=== PATIENT | male | born 1965 | race Caucasian/White ===

== ENCOUNTER 2017-02-27 20:38 | Inpatient (IN) | payer BC, OTHER ==
[2017-02-27 20:45] VITALS: O2SAT 100
[2017-02-27 21:00] VITALS: O2SAT 100
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
[2017-02-27 21:13] LABS: AUTOMATED NEUTROPHIL # 7.7 TH/MM3 (1.8-7.7); BASOPHIL # 0.1 TH/MM3 (0-0.2); BASOPHIL % 1.2 % (0.0-2.0); EOSINOPHIL % 0.2 % (0.0-4.0); HEMATOCRIT 39.9 % (39.0-51.0); LYMPH % 23.8 % (9.0-44.0); LYMPHOCYTE # 2.8 TH/MM3 (1.0-4.8); MEAN CELL VOLUME 98.5 FL (80.0-100.0); MEAN CORPUSCULAR HEMOGLOBIN 32.7 PG (27.0-34.0); MEAN CORPUSCULAR HGB CONC 33.2 % (32.0-36.0); MONO % 8.7 % (0.0-8.0); NEUT % 66.1 % (16.0-70.0); PLATELET COUNT 72 TH/MM3 (150-450); RED BLOOD COUNT 4.05 MIL/MM3 (4.50-5.90); RED CELL DISTRIBUTION WIDTH 12.9 % (11.6-17.2); WHITE BLOOD COUNT 11.7 TH/MM3 (4.0-11.0)
[2017-02-27] MEDS ORDERED: IOHEXOL 350 MG/ML 10 ML VIAL (for RAD DIAG) IVCONTRAST ONE (21:15)
[2017-02-27 21:16] LABS: HEMO FLAGS AUTO DIFF
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
[2017-02-27] MEDS ORDERED: metroNIDAZOLE 500 MG INJ 100 ML IV ONE (21:37)
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
[2017-02-27 21:42] LABS: PLATELET ESTIMATE SMEAR NORMAL (NORMAL); SCAN/DIFF AUTO DIFF CONFIRMED
[2017-02-27 21:43] LABS: PLATELET MORPHOLOGY CLUMPED (NORMAL)
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
[2017-02-27] MEDS ORDERED: ETOMIDATE 20 MG/10 ML VIAL ONE (21:48)
[2017-02-27] MEDS ORDERED: ROCURONIUM INJ 50 MG/5 ML VIAL ONE (21:48)
[2017-02-27 22:05] LABS: I-STAT POTASSIUM 3.3 MMOL/L (3.5-4.9)
[2017-02-27] MEDS ORDERED: GENTAMICIN SULFATE 80 MG/2 ML VIAL ONE (22:07)
[2017-02-27 22:27] LABS: APTT (PATIENT) 23.1 SEC (24.3-30.1); PROTHROMBIN TIME - PATIENT 11.4 SEC (9.8-11.6)
[2017-02-27] MEDS ORDERED: SODIUM CHLOR 0.9% 1000 ML INJ 1,000 ML IV SCH (23:10)
[2017-02-27] MEDS ORDERED: CHLORHEXIDINE GLUCONATE 2 % 1 PACK (2 CLOTHS) TOP PRN (23:15)
[2017-02-27] MEDS ORDERED: MISCELLANEOUS NURSING INFORMATION XX SCH (23:15)
[2017-02-27] MEDS ORDERED: PROPOFOL 1000 MG/100 ML INJ 100 ML IV PRN (23:30)
[2017-02-27] MEDS ORDERED: fentaNYL DRIP 250 ML IV PRN (23:30)
[2017-02-27 23:35] VITALS: O2SAT 100
[2017-02-27] MEDS ORDERED: fentaNYL 2,500 MCG/NS 250 ML IV PRN (23:45)
[2017-02-28] VITALS (15 sets, daily range): BP systolic 96–169; BP diastolic 51–88; PULSE 105–128; RESP 13–20; TEMP 98.7–101.5; O2SAT 97–100
[2017-02-28] MEDS: PROPOFOL 1000 MG/100 ML IV PRN ×3 (00:05→09:26)
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
[2017-02-28] MEDS: ceFAZolin 2 GM PREMIX 50 ML IV SCH ×3 (00:49→15:16)
[2017-02-28] MEDS: FAMOTIDINE 20 MG/2 ML VIAL IV PUSH SCH ×2 (00:51→09:22)
[2017-02-28 01:09] LABS: BLOOD GAS BASE EXCESS -7.3 mmol/L (-2-2); BLOOD GAS CARBOXYHEMOGLOBIN 0.7 % (0-4); BLOOD GAS HCO3 18 mmol/L (22-26); BLOOD GAS METHEMOGLOBIN 1.1 % (0-2); BLOOD GAS O2 HGB SATURATION 97 % (90-100); BLOOD GAS OXYGEN CONTENT 20.9 Vol % (12.0-20.0); BLOOD GAS PCO2 41 mmHg (38-42); BLOOD GAS PO2 170 mmHg (61-120); BLOOD GAS TOTAL HGB 15.1 G/DL (12.0-16.0); TEMP CORR TO 98.6
[2017-02-28 01:10] LABS: CRITICAL VALUE YES; OXYGEN DEVICE VENTILATOR
[2017-02-28 01:11] LABS: DRAW SITE LT RADIAL; FIO2 50 %; NUMBER OF ARTERIAL PUNCTURES 1; STAT NO; ULNAR PULSE PRESENT; VENT SETTINGS AC/RR14/VT600/PEEP5
[2017-02-28] MEDS ORDERED: MAGNESIUM SULFATE INJ 4 GM in SODIUM CHLORIDE 0.9% INJ 92 ML IV PRN (02:00)
[2017-02-28] MEDS ORDERED: MAGNESIUM SULFATE INJ 2 GM in SODIUM CHLORIDE 0.9% INJ 96 ML IV PRN (02:00)
[2017-02-28] MEDS ORDERED: LACTATED RINGER'S 1000 ML INJ 1,000 ML IV ONE ×2 (02:00→08:00)
[2017-02-28] MEDS ORDERED: POTASSIUM CHLOR 20 MEQ PREMIX 100 ML IV PRN (02:00)
[2017-02-28] MEDS ORDERED: POTASSIUM PHOSPHATE INJ 30 MMOL in SODIUM CHLOR 0.9% 250 ML INJ 250 ML IV PRN (02:00)
[2017-02-28] MEDS ORDERED: POTASSIUM CHLORIDE 25 MEQ EFFERVESCENT TAB PO PRN (02:00)
[2017-02-28] MEDS ORDERED: POTASSIUM PHOSPHATE MONOBASIC 500 MG TAB PO/TUBE PRN (02:00)
[2017-02-28] MEDS ORDERED: POTASSIUM CHLOR 40 MEQ PREMIX 100 ML IV PRN ×2 (02:00)
[2017-02-28] MEDS ORDERED: MAGNESIUM OXIDE 400 MG TAB PO PRN (02:00)
[2017-02-28] MEDS ORDERED: POTASSIUM PHOSPHATE MONOBASIC 500 MG TAB PO PRN (02:00)
[2017-02-28] MEDS ORDERED: SODIUM PHOSPHATE INJ 30 MMOL in SODIUM CHLOR 0.9% 250 ML INJ 240 ML IV PRN (02:00)
[2017-02-28 03:19] LABS: BASOPHIL % 0.4 % (0.0-2.0); EOSINOPHIL % 0.1 % (0.0-4.0); HEMATOCRIT 40.6 % (39.0-51.0); LYMPH % 13.7 % (9.0-44.0); LYMPHOCYTE # 1.7 TH/MM3 (1.0-4.8); MEAN CELL VOLUME 97.8 FL (80.0-100.0); MEAN CORPUSCULAR HEMOGLOBIN 33.2 PG (27.0-34.0); MEAN CORPUSCULAR HGB CONC 33.9 % (32.0-36.0); MONO % 6.4 % (0.0-8.0); NEUT % 79.4 % (16.0-70.0); PLATELET COUNT 149 TH/MM3 (150-450); RED BLOOD COUNT 4.15 MIL/MM3 (4.50-5.90); RED CELL DISTRIBUTION WIDTH 13.2 % (11.6-17.2); WHITE BLOOD COUNT 12.6 TH/MM3 (4.0-11.0)
[2017-02-28 03:21] LABS: HEMO FLAGS AUTO DIFF; PROTHROMBIN TIME - PATIENT 11.4 SEC (9.8-11.6)
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
[2017-02-28] MEDS: LACTATED RINGER'S 1000 ML INJ 1,000 ML IV SCH ×2 (03:45→12:08)
[2017-02-28] MEDS: CHLORHEXIDINE GLUCONATE 2 % 1 PACK (2 CLOTHS) TOP SCH (04:00)
[2017-02-28 04:12] LABS: BICARBONATE 20.3 MEQ/L (21.0-32.0); MAGNESIUM 1.9 MG/DL (1.5-2.5); POTASSIUM 3.3 MEQ/L (3.5-5.1)
[2017-02-28 04:19] LABS: BANDS 21 % (0-6); BASOPHILS 1 % (0-2); METAMYELOCYTES 4 % (0-1); NEUTROPHIL # MANUAL DIFF 10.6 TH/MM3 (1.8-7.7); PLATELET ESTIMATE SMEAR NORMAL (NORMAL); POLYS (SEG NEUTROPHILS) 59 % (16-70); SCAN/DIFF FINAL DIFF MANUAL; WBC DIFF SAMPLE 100
[2017-02-28 04:20] LABS: PLATELET MORPHOLOGY NORMAL (NORMAL)
[2017-02-28 04:27] LABS: BLOOD GAS BASE EXCESS -6.2 mmol/L (-2-2); BLOOD GAS CARBOXYHEMOGLOBIN 0.8 % (0-4); BLOOD GAS HCO3 19 mmol/L (22-26); BLOOD GAS METHEMOGLOBIN 1.2 % (0-2); BLOOD GAS O2 HGB SATURATION 97 % (90-100); BLOOD GAS PCO2 41 mmHg (38-42); BLOOD GAS PO2 143 mmHg (61-120); BLOOD GAS TOTAL HGB 13.8 G/DL (12.0-16.0); CRITICAL VALUE NO; FIO2 50 %; OXYGEN DEVICE VENTILATOR; TEMP CORR TO 98.6; VENT SETTINGS AC/RR14/VT600/PEEP5
[2017-02-28 04:28] LABS: CALCIUM-PROTEIN CORRECTED 6.8 MG/DL (8.5-10.1)
[2017-02-28 04:28] LABS: DRAW SITE RT RADIAL; NUMBER OF ARTERIAL PUNCTURES 1; STAT NO; ULNAR PULSE PRESENT
[2017-02-28] MEDS: POTASSIUM CHLOR 20 MEQ PREMIX 100 ML IV PRN ×2 (04:36→06:46)
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
[2017-02-28] MEDS ORDERED: CHLORHEXIDINE 0.12% (ORAL KIT) 15 ML CUP MT SCH (08:00)
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
[2017-02-28] MEDS: ACETAMINOPHEN 1000 MG/100 ML 100 ML IV SCH ×2 (12:03→19:58)
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
[2017-02-28] MEDS ORDERED: RESP: ALBUTEROL 2.5 MG/3 ML NEB (PRN) NEB (14:30)
[2017-02-28] MEDS ORDERED: CALCIUM GLUCONATE INJ 1 GM in SODIUM CHLORIDE 0.9% INJ 100 ML IV ONE ×2 (14:30→17:00)
[2017-02-28] MEDS ORDERED: HYDROmorphone HCL PF 1 MG/ML VIAL IV PUSH PRN (14:30)
[2017-02-28] MEDS ORDERED: METOPROLOL TARTRATE 5 MG/5 ML VIAL IV PUSH SCH (15:00)
[2017-02-28] MEDS: HYDROmorphone HCL PF 1 MG/ML VIAL IV PUSH PRN ×2 (15:14→21:04)
[2017-02-28] MEDS ORDERED: MULTIVITAMIN INJ 10 ML, THIAMINE INJ 100 MG, FOLIC ACID INJ 1 MG in SODIUM CHLORID 0.9%... IV ONE (16:00)
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
[2017-02-28] MEDS: METOPROLOL SUCCINATE 25 MG EXTENDED RELEASE TAB PO SCH (16:30)
[2017-02-28] MEDS: ENOXAPARIN SODIUM 40 MG/0.4 ML SYRINGE SQ SCH (17:58)
[2017-02-28] MEDS: metroNIDAZOLE 500 MG INJ 100 ML IV SCH (17:58)
[2017-02-28] MEDS: oxyCODONE/ACETAMINOPHEN 5 MG/325 MG TAB PO PRN (22:37)
[2017-03-01] VITALS (7 sets, daily range): BP systolic 104–142; BP diastolic 65–80; PULSE 109–121; RESP 18–20; TEMP 98.7–100.8; O2SAT 90–98
[2017-03-01] MEDS: ACETAMINOPHEN 1000 MG/100 ML 100 ML IV SCH ×3 (00:41→11:56)
[2017-03-01] MEDS: ceFAZolin 2 GM PREMIX 50 ML IV SCH ×3 (00:41→15:52)
[2017-03-01] MEDS: HYDROmorphone HCL PF 1 MG/ML VIAL IV PUSH PRN ×3 (00:42→21:08)
[2017-03-01] MEDS: LACTATED RINGER'S 1000 ML INJ 1,000 ML IV SCH ×3 (01:45→21:09)
[2017-03-01] MEDS: metroNIDAZOLE 500 MG INJ 100 ML IV SCH ×3 (02:15→18:56)
[2017-03-01] MEDS: CHLORHEXIDINE GLUCONATE 2 % 1 PACK (2 CLOTHS) TOP SCH (04:00)
[2017-03-01] MEDS: oxyCODONE/ACETAMINOPHEN 5 MG/325 MG TAB PO PRN (05:50)
[2017-03-01 07:18] LABS: AUTOMATED NEUTROPHIL # 15.4 TH/MM3 (1.8-7.7); BASOPHIL # 0.1 TH/MM3 (0-0.2); BASOPHIL % 0.4 % (0.0-2.0); BICARBONATE 23.1 MEQ/L (21.0-32.0); EOSINOPHIL % 0.2 % (0.0-4.0); HEMATOCRIT 36.2 % (39.0-51.0); HEMO FLAGS DIFF FINAL; LYMPHOCYTE # 1.2 TH/MM3 (1.0-4.8); MEAN CELL VOLUME 98.6 FL (80.0-100.0); MEAN CORPUSCULAR HEMOGLOBIN 32.9 PG (27.0-34.0); MEAN CORPUSCULAR HGB CONC 33.3 % (32.0-36.0); MONO % 5.7 % (0.0-8.0); NEUT % 86.7 % (16.0-70.0); PLATELET COUNT 125 TH/MM3 (150-450); POTASSIUM 3.5 MEQ/L (3.5-5.1); RED BLOOD COUNT 3.67 MIL/MM3 (4.50-5.90); RED CELL DISTRIBUTION WIDTH 13.5 % (11.6-17.2); WHITE BLOOD COUNT 17.8 TH/MM3 (4.0-11.0)
[2017-03-01 07:30] LABS: CALCIUM-PROTEIN CORRECTED 8.1 MG/DL (8.5-10.1)
[2017-03-01] MEDS: FAMOTIDINE 20 MG TAB PO SCH ×2 (08:55→21:08)
[2017-03-01] MEDS: METOPROLOL SUCCINATE 25 MG EXTENDED RELEASE TAB PO SCH (08:55)
[2017-03-01] MEDS ORDERED: ACETAMINOPHEN 1000 MG/100 ML 100 ML IV ONE (09:28)
[2017-03-01] MEDS: oxyCODONE/ACETAMINOPHEN 7.5 MG/325 MG TAB PO PRN ×2 (11:54→15:52)
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
[2017-03-01] MEDS: LACTULOSE SYRUP 20 GM/30 ML CUP PO SCH (14:59)
[2017-03-01] MEDS: ENOXAPARIN SODIUM 40 MG/0.4 ML SYRINGE SQ SCH (18:56)
[2017-03-01] MEDS: MAGNESIUM HYDROXIDE SUSP 30 ML CUP PO SCH (21:08)
[2017-03-01] MEDS: DOCUSATE SODIUM 50 MG/SENNA 8.6 MG TAB PO SCH (21:08)
[2017-03-02 03:00] VITALS: BP 131/65; PULSE 108; RESP 18; TEMP 99.8; O2SAT 92
[2017-03-02] MEDS: metroNIDAZOLE 500 MG INJ 100 ML IV SCH ×3 (03:11→17:28)
[2017-03-02 06:05] LABS: AUTOMATED NEUTROPHIL # 15.3 TH/MM3 (1.8-7.7); BASOPHIL # 0.1 TH/MM3 (0-0.2); BASOPHIL % 0.3 % (0.0-2.0); EOSINOPHIL # 0.2 TH/MM3 (0-0.4); EOSINOPHIL % 1.2 % (0.0-4.0); HEMATOCRIT 34.2 % (39.0-51.0); HEMO FLAGS DIFF FINAL; LYMPH % 7.2 % (9.0-44.0); LYMPHOCYTE # 1.3 TH/MM3 (1.0-4.8); MEAN CELL VOLUME 98.5 FL (80.0-100.0); MEAN CORPUSCULAR HEMOGLOBIN 33.3 PG (27.0-34.0); MEAN CORPUSCULAR HGB CONC 33.8 % (32.0-36.0); MONO % 3.6 % (0.0-8.0); NEUT % 87.7 % (16.0-70.0); PLATELET COUNT 126 TH/MM3 (150-450); RED BLOOD COUNT 3.47 MIL/MM3 (4.50-5.90); RED CELL DISTRIBUTION WIDTH 13.3 % (11.6-17.2); WHITE BLOOD COUNT 17.4 TH/MM3 (4.0-11.0)
[2017-03-02 06:24] LABS: BICARBONATE 22.7 MEQ/L (21.0-32.0); POTASSIUM 3.3 MEQ/L (3.5-5.1)
[2017-03-02] MEDS ORDERED: POTASSIUM CHLORIDE 20 MEQ CONTROLLED RELEASE TAB PO ONE (07:15)
[2017-03-02 08:00] VITALS: BP 133/75; PULSE 106; RESP 18; TEMP 98.3; O2SAT 93
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
[2017-03-02] MEDS: METOPROLOL SUCCINATE 25 MG EXTENDED RELEASE TAB PO SCH (08:50)
[2017-03-02] MEDS: oxyCODONE/ACETAMINOPHEN 7.5 MG/325 MG TAB PO PRN ×4 (08:51→21:44)
[2017-03-02] MEDS: FAMOTIDINE 20 MG TAB PO SCH ×2 (08:51→21:43)
[2017-03-02] MEDS: DOCUSATE SODIUM 50 MG/SENNA 8.6 MG TAB PO SCH ×2 (08:51→21:43)
[2017-03-02] MEDS: LACTULOSE SYRUP 20 GM/30 ML CUP PO SCH (09:00)
--- NOTE | 2017-03-02 11:19 | HHI.PYPN ---
Subjective Remarks Patient was seen today for psychiatric reevaluation, patient is found in his room, calm, cooperative. Patient stated that he is feeling much better today. He says that he has been dedicated time to think about what he did. He has concluded that alcohol intoxication had a lot to do with his past suicide attempt. He says that he has been increasing his alcohol intake in the last weeks due to financial and marital problems. Patient says that he has been living at conflict his marital life with his and they have not being able to, with a "mature solution". Patient says that now that this happened to him he becomes aware of how important his for many people in his surrounding. Patient says that he has a plan to quit alcohol and to sell all his collection weapons. At this moment the patient reports good mood, denies suicidal and homicidal ideation, denies visual and auditory hallucinations. She is oriented 3, no attention deficit, no fruit patient of consciousness, no withdrawal symptoms are present. No agitation, no aggressive behavior reported. Chief Complaint: suicide attempts Review of Systems Except as stated in HPI: all other systems reviewed are Neg Mental Status Examination Appearance: Other (in hospital attire.) Consciousness: Alert (no evidence of delirium) Orientation: Person, Place, Date/Time (approximate) Motor Activity: Other (no motor abnormalities noted) Speech: Unremarkable Language: Adequate Fund of Knowledge: Adequate (at least above average) Attention and Concentration: Adequate Memory: Unremarkable Mood: Appropriate Affect: Appropriate Thought Process & Associations: Intact Thought Content: Appropriate Hallucination Type: None Delusion Type: None Suicidal Ideation: No (unreliable to contract for safety) Suicidal Plan: No Suicidal Intention: No Homicidal Ideation: No Homicidal Plan: No Homicidal Intention: No Insight: Poor Judgment: Poor Results Labs Test 03/02/17 04:50 White Blood Count 17.4 TH/MM3 Red Blood Count 3.47 MIL/MM3 Hemoglobin 11.5 GM/DL Hematocrit 34.2 % Mean Corpuscular Volume 98.5 FL Mean Corpuscular Hemoglobin 33.3 PG Mean Corpuscular Hemoglobin Concent 33.8 % Red Cell Distribution Width 13.3 % Platelet Count 126 TH/MM3 Mean Platelet Volume 10.2 FL Neutrophils (%) (Auto) 87.7 % Lymphocytes (%) (Auto) 7.2 % Monocytes (%) (Auto) 3.6 % Eosinophils (%) (Auto) 1.2 % Basophils (%) (Auto) 0.3 % Neutrophils # (Auto) 15.3 TH/MM3 Lymphocytes # (Auto) 1.3 TH/MM3 Monocytes # (Auto) 0.6 TH/MM3 Eosinophils # (Auto) 0.2 TH/MM3 Basophils # (Auto) 0.1 TH/MM3 CBC Comment DIFF FINAL Differential Comment Blood Urea Nitrogen 8 MG/DL Creatinine 0.73 MG/DL Random Glucose 102 MG/DL Calcium Level 8.1 MG/DL Sodium Level 136 MEQ/L Potassium Level 3.3 MEQ/L Chloride Level 103 MEQ/L Carbon Dioxide Level 22.7 MEQ/L Anion Gap 10 MEQ/L Estimat Glomerular Filtration Rate 93 ML/MIN Vitals/IOs Vital Signs Date Time Temp Pulse Resp B/P (MAP) Pulse Ox O2 Delivery O2 Flow Rate FiO2 03/02/17 08:00 98.3 106 18 133/75 (94) 93 03/01/17 19:21 Room Air 02/28/17 11:25 2 02/28/17 08:02 50 Intake and Output 03/02/17 03/02/17 03/03/17 08:00 16:00 00:00 Intake Total 1079 ml Balance 1079 ml Assessment & Plan Problem List: (1) Adjustment disorder with mixed disturbance of emotions and conduct ICD Codes: F43.25 - Adjustment disorder with mixed disturbance of emotions and conduct Assessment & Plan: Patient seems to be today more insightful about the circumstances, emotions, behavior that led to highly lethal suicide attempt. He denies current suicidal ideation, denies plan, and for safety in the hospital. Patient should continue in one-to-one sitter for suicidal precautions. No psychotropics indicated at this moment. Patient also should be in CIWA protocol. No psychotropics indicated at this moment. Extensive support, motivation and psychoeducation provided. Transfer patient to psychiatry once medically appropriate. (2) Alcohol use ICD Codes: Z78.9 - Other specified health status Assessment & Plan Estimated LOS: days Justification for Cont. Inpt. Patient needs psychiatric hospitalization for safety and stabilization. Request HC Surrog/Guard Advoc?: No Christopher Mo MD Mar 02, 2017 11:19
[2017-03-02 12:00] VITALS: BP 140/79; PULSE 89; RESP 18; TEMP 97.8; O2SAT 95
[2017-03-02] MEDS: ceFAZolin 2 GM PREMIX 50 ML IV SCH ×2 (13:18→17:28)
[2017-03-02 16:20] VITALS: BP 128/80; PULSE 104; RESP 17; TEMP 99; O2SAT 94
[2017-03-02] MEDS: ENOXAPARIN SODIUM 40 MG/0.4 ML SYRINGE SQ SCH (17:28)
[2017-03-02 19:45] VITALS: BP 123/70; PULSE 113; RESP 20; TEMP 100.6; O2SAT 94
[2017-03-02] MEDS: MAGNESIUM HYDROXIDE SUSP 30 ML CUP PO SCH (21:43)
[2017-03-02 23:20] VITALS: BP 132/74; PULSE 98; RESP 20; TEMP 100.2; O2SAT 93
[2017-03-03] MEDS: ceFAZolin 2 GM PREMIX 50 ML IV SCH ×2 (02:36→10:58)
[2017-03-03] MEDS: metroNIDAZOLE 500 MG INJ 100 ML IV SCH ×2 (02:36→10:58)
[2017-03-03 04:21] LABS: BASOPHIL # 0.1 TH/MM3 (0-0.2); BASOPHIL % 0.4 % (0.0-2.0); EOSINOPHIL # 0.6 TH/MM3 (0-0.4); EOSINOPHIL % 4.9 % (0.0-4.0); HEMATOCRIT 32.5 % (39.0-51.0); HEMO FLAGS DIFF FINAL; LYMPHOCYTE # 1.9 TH/MM3 (1.0-4.8); MEAN CELL VOLUME 96.5 FL (80.0-100.0); MEAN CORPUSCULAR HEMOGLOBIN 32.1 PG (27.0-34.0); MEAN CORPUSCULAR HGB CONC 33.3 % (32.0-36.0); MONO % 6.8 % (0.0-8.0); NEUT % 72.9 % (16.0-70.0); PLATELET COUNT 156 TH/MM3 (150-450); RED BLOOD COUNT 3.37 MIL/MM3 (4.50-5.90); RED CELL DISTRIBUTION WIDTH 13.3 % (11.6-17.2); WHITE BLOOD COUNT 12.4 TH/MM3 (4.0-11.0)
[2017-03-03 04:41] LABS: BICARBONATE 28.2 MEQ/L (21.0-32.0); POTASSIUM 3.1 MEQ/L (3.5-5.1)
[2017-03-03 08:00] VITALS: BP 139/68; PULSE 86; RESP 18; TEMP 97.8; O2SAT 95
[2017-03-03] MEDS: oxyCODONE/ACETAMINOPHEN 7.5 MG/325 MG TAB PO PRN ×2 (08:39→12:56)
[2017-03-03] MEDS: FAMOTIDINE 20 MG TAB PO SCH (08:39)
[2017-03-03] MEDS: DOCUSATE SODIUM 50 MG/SENNA 8.6 MG TAB PO SCH (08:39)
[2017-03-03] MEDS: METOPROLOL SUCCINATE 25 MG EXTENDED RELEASE TAB PO SCH (08:39)
[2017-03-03] MEDS: LACTULOSE SYRUP 20 GM/30 ML CUP PO SCH (08:39)
[2017-03-03 11:16] LABS: BATH SALTS (MDPV) UR NEG (NEG); ECSTASY (MDMA) UR NEG (NEG); GABAPENTIN UR NEG (NEG); HEROIN (6-ACETYLMORPHINE) UR NEG (NEG); HYDROMORPHONE U NEG (NEG); K2 SPICE UR NEG (NEG); OBMETHADONE UR NEG (NEG); PHENCYCLIDINE URINE NEG (NEG)
[2017-03-03] MEDS ORDERED: METO25TA6 PO (11:49)
[2017-03-03] MEDS ORDERED: MAGN400S PO (11:49)
[2017-03-03] MEDS ORDERED: OXYC1TAB35 PO (11:49)
[2017-03-03] MEDS ORDERED: Lactulose Liq PO (11:49)
[2017-03-03] MEDS ORDERED: ENOX40P SQ (11:49)
[2017-03-03] MEDS ORDERED: OXYC1TAB63 PO (11:49)
[2017-03-03] MEDS ORDERED: SENN1TAB PO (11:49)
[2017-03-03 12:00] VITALS: BP 120/78; PULSE 75; RESP 18; TEMP 98.9; O2SAT 94
[2017-03-03] MEDS ORDERED: ROCURONIUM INJ 50 MG/5 ML SYRINGE IV PUSH ONE (12:00)
[2017-03-03] MEDS ORDERED: SUCCINYLCHOLINE CHLORIDE 100 MG/5 ML SYRINGE IV PUSH ONE (12:00)
[2017-03-03] MEDS ORDERED: NORMOSOL R INJ 2,000 ML IV ONE (12:00)
[2017-03-03] MEDS ORDERED: STERILE WATER FOR INJECTION 20 ML VIAL IV ONE (12:00)
[2017-03-03] MEDS ORDERED: PROPOFOL 200 MG/20 ML AMP IV ONE (12:00)
[2017-03-03] MEDS ORDERED: CEFA2SOL IV (12:12)
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
== END 2017-03-03 13:53 | DRG 957 ==
LOC: HOR 20:38 → EDBD 21:00 → NEDA 21:00 → N03A 23:32 → N06B 02-28 23:00
PROVIDERS: ADMIT Surgery Trauma Surgery; ATTEND Surgery Trauma Surgery
PROC: 0DQH0ZZ Repair Cecum, Open Approach (ICD-10-PCS; principal; 2017-02-28)
PROC: 0BH17EZ Insertion of Endotracheal Airway into Trachea, Via Natural or Artificial Opening (ICD-10-PCS; 2017-02-28)
PROC: 5A1935Z Respiratory Ventilation, Less than 24 Consecutive Hours (ICD-10-PCS; 2017-02-28)
DX: S36.538A Laceration of other part of colon, initial encounter (principal); J96.00 Acute respiratory failure, unspecified whether with hypoxia or hypercapnia; S32.301A Unspecified fracture of right ilium, initial encounter for closed fracture; S31.610A Laceration without foreign body of abdominal wall, right upper quadrant with penetration into peritoneal cavity, initial encounter; E87.2 Acidosis; D69.6 Thrombocytopenia, unspecified; J98.11 Atelectasis; E83.51 Hypocalcemia; E86.9 Volume depletion, unspecified; Y92.9 Unspecified place or not applicable; F10.129 Alcohol abuse with intoxication, unspecified; E78.5 Hyperlipidemia, unspecified; E87.6 Hypokalemia; K76.89 Other specified diseases of liver; R50.82 Postprocedural fever; Y90.7 Blood alcohol level of 200-239 mg/100 ml; K76.0 Fatty (change of) liver, not elsewhere classified; K40.90 Unilateral inguinal hernia, without obstruction or gangrene, not specified as recurrent; Z79.899 Other long term (current) drug therapy; Z91.5 Personal history of self-harm; D72.829 Elevated white blood cell count, unspecified; F43.10 Post-traumatic stress disorder, unspecified; F43.25 Adjustment disorder with mixed disturbance of emotions and conduct; Z63.0 Problems in relationship with spouse or partner
CPT/HCPCS: 31500; 36600; 71010; 71260; 74177; 80048; 80307; 82435; 82565; 82805; 82947; 83735; 84100; 84132; 84155; 84295; 84520; 85007; 85025; 85027; 85049; 85384; 85610; 85730; 86850; 86900; 86901; 86920; 87641; 90471; 94002; 94003; 94150; 94640; 94668; 96374; 96375; 99291; G0390; G0481; J0131; J0330; J0610; J0690; J1170; J1580; J1650; J3010; J3411; J3480; J7030; J7040; J7120; Q9967

== ENCOUNTER 2017-03-03 14:05 | Inpatient (IN) | payer BC, OTHER ==
[~2017-03-03 14:05] MED LIST: CEFA2SOL IV; ENOX40P SQ; Lactulose Liq PO; MAGN400S PO; METO25TA6 PO; OXYC1TAB35 PO; OXYC1TAB63 PO; SENN1TAB PO
[2017-03-03] MEDS ORDERED: MAGNESIUM HYDROXIDE SUSP 30 ML CUP PO PRN (16:30)
[2017-03-03] MEDS ORDERED: ACETAMINOPHEN 325 MG TAB PO PRN (16:30)
[2017-03-03] MEDS ORDERED: ALUMINUM/MAGNESIUM/SIMETH 30 ML CUP PO PRN (16:30)
[2017-03-03] MEDS: METOPROLOL SUCCINATE 25 MG EXTENDED RELEASE TAB PO SCH (17:44)
[2017-03-03] MEDS: NICOTINE 21 MG/24 HR PATCH T-DERMAL SCH (17:45)
[2017-03-03 18:25] VITALS: BP 144/71; PULSE 99; RESP 17; TEMP 97.9; O2SAT 97
[2017-03-03] MEDS: ceFAZolin 2 GM/50 ML BAG IV SCH (20:33)
[2017-03-03] MEDS: MAGNESIUM HYDROXIDE SUSP 30 ML CUP PO SCH (21:00)
[2017-03-03] MEDS: DOCUSATE SODIUM 50 MG/SENNA 8.6 MG TAB PO SCH (21:00)
[2017-03-04] MEDS: oxyCODONE/ACETAMINOPHEN 7.5 MG/325 MG TAB PO PRN ×3 (01:18→18:54)
[2017-03-04] MEDS: ceFAZolin 2 GM/50 ML BAG IV SCH ×3 (02:00→18:00)
[2017-03-04 05:42] VITALS: BP 122/65; PULSE 79; RESP 16; TEMP 98.4; O2SAT 96
[2017-03-04] MEDS: METOPROLOL SUCCINATE 25 MG EXTENDED RELEASE TAB PO SCH (08:38)
[2017-03-04] MEDS: DOCUSATE SODIUM 50 MG/SENNA 8.6 MG TAB PO SCH ×3 (08:38→21:14)
[2017-03-04] MEDS: oxyCODONE/ACETAMINOPHEN 5 MG/325 MG TAB PO PRN (08:42)
[2017-03-04] MEDS: NICOTINE 21 MG/24 HR PATCH T-DERMAL SCH (08:43)
[2017-03-04 09:17] LABS: ANION GAP 10 MEQ/L (5-15); BICARBONATE 22.6 MEQ/L (21.0-32.0); BLOOD UREA NITROGEN 10 MG/DL (7-18); CHLORIDE 105 MEQ/L (98-107); GLOMERULAR FILTRATION RATE 113 ML/MIN (>89); HDL CHOLESTEROL 24.7 MG/DL (40.0-60.0); LDL CHOLESTEROL 109 MG/DL (0-99); POTASSIUM 3.2 MEQ/L (3.5-5.1); SODIUM (NA) 138 MEQ/L (136-145)
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
[2017-03-04 16:28] LABS: HEMOGLOBIN A1b 1.8 %; HEMOGLOBIN Ao 84.5 %; HEMOGLOBIN LA1C 2.3 %; HEMOGLOBIN P3 3.9 %
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
[2017-03-04 18:00] VITALS: BP 123/78; PULSE 91; RESP 17; TEMP 98; O2SAT 97
[2017-03-04] MEDS ORDERED: MIRTAZAPINE 15 MG TAB PO SCH (21:00)
[2017-03-04] MEDS: MAGNESIUM HYDROXIDE SUSP 30 ML CUP PO SCH (21:00)
[2017-03-05] MEDS: ceFAZolin 2 GM/50 ML BAG IV SCH (02:00)
[2017-03-05] MEDS: oxyCODONE/ACETAMINOPHEN 7.5 MG/325 MG TAB PO PRN ×2 (04:06→23:23)
[2017-03-05 04:38] VITALS: BP 122/77; PULSE 86; RESP 16; TEMP 99.1; O2SAT 96
[2017-03-05] MEDS: NICOTINE 21 MG/24 HR PATCH T-DERMAL SCH (09:26)
[2017-03-05] MEDS: DOCUSATE SODIUM 50 MG/SENNA 8.6 MG TAB PO SCH ×2 (09:30→20:50)
[2017-03-05] MEDS: METOPROLOL SUCCINATE 25 MG EXTENDED RELEASE TAB PO SCH (09:30)
[2017-03-05] MEDS: oxyCODONE/ACETAMINOPHEN 5 MG/325 MG TAB PO PRN ×2 (09:30→19:42)
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
--- NOTE | 2017-03-05 16:00 | HHI.PYPN ---
Subjective Remarks Patient seen today for psychiatric reevaluation along with nurse in charge, Surendra. Patient is talkative, with high level of intellectualization and self entitlement. Patient says that he has been talking with a lot of important people in his life, he says that those are the right people that he has to speak with in order to restart his life. Patient says that he feels very positive and ready to be discharged and go to his job and put in his things in order. He reports good mood, he denies suicidal and homicidal ideation, he denies visual and auditory hallucinations. Patient is oriented 3, no fluctuation of consciousness, no delirium present. He reports that he could not sleep last night with Remeron. Mental Status Examination Appearance: Appropriate Consciousness: Alert Orientation: x4 Motor Activity: Normal gait Speech: Unremarkable Language: Adequate Fund of Knowledge: Adequate Attention and Concentration: Adequate Memory: Unremarkable Mood: Appropriate Affect: Appropriate Thought Process & Associations: Intact Thought Content: Appropriate Hallucination Type: None Delusion Type: None Suicidal Ideation: No Suicidal Plan: No Suicidal Intention: No Homicidal Ideation: No Homicidal Plan: No Homicidal Intention: No Insight: Adequate Judgment: Adequate Results Vitals/IOs Vital Signs Date Time Temp Pulse Resp B/P (MAP) Pulse Ox O2 Delivery O2 Flow Rate FiO2 03/05/17 04:38 99.1 86 16 122/77 (92) 96 Intake and Output 03/05/17 03/05/17 03/06/17 08:00 16:00 00:00 Intake Total 120 ml 480 ml Balance 120 ml 480 ml Assessment & Plan Problem List: (1) Adjustment disorder with mixed disturbance of emotions and conduct ICD Codes: F43.25 - Adjustment disorder with mixed disturbance of emotions and conduct Assessment & Plan: We'll discontinue Remeron, start Seroquel 50 mg to help with sleep. Assessment & Plan Estimated LOS: days Justification for Cont. Inpt. Patient needs to continue psychiatric hospitalization for stabilization and safety. Christopher Mo MD Mar 05, 2017 16:00
[2017-03-05 18:06] VITALS: BP 164/69; PULSE 83; RESP 16; TEMP 98.5; O2SAT 96
[2017-03-05] MEDS: QUEtiapine FUMARATE 25 MG TAB PO SCH (20:50)
[2017-03-05] MEDS: REMOVE OLD NICODERM (NICOTINE) PATCH T-DERMAL SCH (21:00)
[2017-03-06 06:16] VITALS: BP 118/62; PULSE 83; RESP 16; TEMP 97.9; O2SAT 95
[2017-03-06] MEDS: METOPROLOL SUCCINATE 25 MG EXTENDED RELEASE TAB PO SCH (09:40)
[2017-03-06] MEDS: DOCUSATE SODIUM 50 MG/SENNA 8.6 MG TAB PO SCH ×2 (09:40→21:56)
[2017-03-06] MEDS: oxyCODONE/ACETAMINOPHEN 5 MG/325 MG TAB PO PRN ×2 (09:40→21:56)
[2017-03-06] MEDS: NICOTINE 21 MG/24 HR PATCH T-DERMAL SCH (09:41)
--- NOTE | 2017-03-06 13:19 | HHI.PYPN ---
Subjective Remarks She was seen today for psychiatric evaluation patient is found sleeping, he arousable, reports good mood, states that he feels everything better. Patient motivated to be discharged continue with his life, continue psychotropic medications and counseling in outpatient basis. Denies depression, denies anxiety, denies suicidal and homicidal ideation, denies visual and auditory hallucinations. Oriented per 3, logical, coherent and relevant. Reported better sleep last night with Seroquel. Review of Systems Except as stated in HPI: all other systems reviewed are Neg Mental Status Examination Appearance: Appropriate Consciousness: Alert Orientation: x4 Motor Activity: Normal gait Speech: Unremarkable Language: Adequate Fund of Knowledge: Adequate Attention and Concentration: Adequate Memory: Unremarkable Mood: Appropriate Affect: Appropriate Thought Process & Associations: Intact Thought Content: Appropriate Hallucination Type: None Delusion Type: None Suicidal Ideation: No Suicidal Plan: No Suicidal Intention: No Homicidal Ideation: No Homicidal Plan: No Homicidal Intention: No Insight: Adequate Judgment: Adequate Results Vitals/IOs Vital Signs Date Time Temp Pulse Resp B/P (MAP) Pulse Ox O2 Delivery O2 Flow Rate FiO2 03/06/17 06:16 97.9 83 16 118/62 (80) 95 Intake and Output 03/06/17 03/06/17 03/07/17 08:00 16:00 00:00 Intake Total 0 ml Balance 0 ml Assessment & Plan Problem List: (1) Adjustment disorder with mixed disturbance of emotions and conduct ICD Codes: F43.25 - Adjustment disorder with mixed disturbance of emotions and conduct Assessment & Plan Estimated LOS: days Justification for Cont. Inpt. Patient has an elevator risk of danger to self out of this structure environment. Christopher Mo MD Mar 06, 2017 13:19
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
[2017-03-06 17:12] VITALS: BP 126/69; PULSE 87; RESP 17; TEMP 99; O2SAT 95
[2017-03-06] MEDS: REMOVE OLD NICODERM (NICOTINE) PATCH T-DERMAL SCH (21:00)
[2017-03-06] MEDS: QUEtiapine FUMARATE 25 MG TAB PO SCH (21:56)
[2017-03-07 05:48] LABS: AUTOMATED NEUTROPHIL # 7.9 TH/MM3 (1.8-7.7); BASOPHIL # 0.1 TH/MM3 (0-0.2); BASOPHIL % 0.7 % (0.0-2.0); EOSINOPHIL # 0.6 TH/MM3 (0-0.4); EOSINOPHIL % 4.3 % (0.0-4.0); HEMATOCRIT 36.6 % (39.0-51.0); HEMO FLAGS DIFF FINAL; LYMPH % 23.5 % (9.0-44.0); LYMPHOCYTE # 3.1 TH/MM3 (1.0-4.8); MEAN CELL VOLUME 96.3 FL (80.0-100.0); MEAN CORPUSCULAR HEMOGLOBIN 32.9 PG (27.0-34.0); MEAN CORPUSCULAR HGB CONC 34.2 % (32.0-36.0); MONO % 11.6 % (0.0-8.0); NEUT % 59.9 % (16.0-70.0); PLATELET COUNT 342 TH/MM3 (150-450); RED CELL DISTRIBUTION WIDTH 13.6 % (11.6-17.2); WHITE BLOOD COUNT 13.2 TH/MM3 (4.0-11.0)
[2017-03-07 05:59] VITALS: BP 99/66; PULSE 74; RESP 18; TEMP 96.9; O2SAT 94
[2017-03-07 06:04] LABS: ANION GAP 9 MEQ/L (5-15); AST (GOT) 17 U/L (15-37); BICARBONATE 25.6 MEQ/L (21.0-32.0); BLOOD UREA NITROGEN 10 MG/DL (7-18); CHLORIDE 104 MEQ/L (98-107); GLOMERULAR FILTRATION RATE 92 ML/MIN (>89); MAGNESIUM 2.6 MG/DL (1.5-2.5); POTASSIUM 3.6 MEQ/L (3.5-5.1); SODIUM (NA) 139 MEQ/L (136-145)
[2017-03-07 06:25] LABS: ALKALINE PHOSPHATASE 57 U/L (45-117); ALT (GPT) 27 U/L (12-78); TOTAL BILIRUBIN ADULT 0.4 MG/DL (0.2-1.0)
[2017-03-07] MEDS: DOCUSATE SODIUM 50 MG/SENNA 8.6 MG TAB PO SCH (08:26)
[2017-03-07] MEDS: NICOTINE 21 MG/24 HR PATCH T-DERMAL SCH (08:26)
[2017-03-07] MEDS: METOPROLOL SUCCINATE 25 MG EXTENDED RELEASE TAB PO SCH (08:26)
[2017-03-07] MEDS ORDERED: QUET1TAB7 PO (13:48)
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
[2017-03-07] MEDS ORDERED: METO25TA6 PO (14:41)
[2017-03-07] MEDS ORDERED: OXYC1TAB35 PO (14:41)
[2017-03-07] MEDS ORDERED: CEPH-460 PO (16:26)
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
== END 2017-03-07 16:50 | disposition home or self-care (01) | DRG 882 ==
LOC: H4EA 14:05
PROVIDERS: ADMIT Psychiatry & Neurology Psychiatry; ATTEND Psychiatry & Neurology Psychiatry
DX: F43.25 Adjustment disorder with mixed disturbance of emotions and conduct (principal); S31.639A Puncture wound without foreign body of abdominal wall, unspecified quadrant with penetration into peritoneal cavity, initial encounter; S32.301A Unspecified fracture of right ilium, initial encounter for closed fracture; F10.14 Alcohol abuse with alcohol-induced mood disorder; I49.9 Cardiac arrhythmia, unspecified; E87.6 Hypokalemia; G47.00 Insomnia, unspecified; Z63.0 Problems in relationship with spouse or partner; Z91.5 Personal history of self-harm
CPT/HCPCS: 80048; 80053; 80061; 83036; 83735; 84443; 85025; J0690